=== PATIENT | male | born 1995 | race Caucasian/White ===

== ENCOUNTER 2016-09-30 16:12 | Emergency (ER) | payer BC ==
[2016-09-30 16:38] VITALS: BP 140/63
--- NOTE | 2016-09-30 17:14 | UC ---
General HPI - HPI Summary HPI Summary: The patient comes in today for: 1. Nausea/vomiting, headache, body aches, swollen glands, diaphoresis: Onset: 2 days ago he had sinus congestion. But his symptoms got worse. Palliative/provocative: Hot showers helped. Quality: ache Region: Bitemporal, neck, legs, shoulder. Severity: 4/10 Time: Constant. Associated symptoms: Urination: normal, colorless yesterday. Diarrhea: None. Vomiting: No blood. Rhinitis: "little bit" yellow in the past. Sinus pressure: present of the right maxillary. Others ill in dorm: None. Fever: 102 (7 AM). Missed classes this morning. Patient states that he has a ruptured right Achilles tendon. * - History of Current Complaint Chief Complaint: UCGI Stated Complaint: FEVER,VOMITING Time Seen by Provider: 09/30/16 17:04 Hx Obtained From: Patient - Allergy/Home Medications Allergies/Adverse Reactions: Allergies Allergy/AdvReac Type Severity Reaction Status Date / Time No Known Allergies Allergy Verified 09/30/16 16:30 PMH/Surg Hx/FS Hx/Imm Hx Previously Healthy: Yes Endocrine History Of: Denies: Diabetes, Thyroid Disease, Hyperthyroidism, Hypothyroidism, Dyslipidemia Cardiovascular History Of: Denies: Cardiac Disorders, Hypertension, Pacemaker/ICD, Myocardial Infarction , Congestive Heart Failure, Atrial Fibrillation, Deep Vein Thrombosis, Bleeding Disorders Respiratory History Of: Denies: COPD, Asthma, Bronchitis, Pneumonia, Pulmonary Embolism GI/ History Of: Denies: Gastroesophageal Reflux, Ulcer, Gastrointestinal Bleed, Gall Bladder Disease, Kidney Stones, Diverticulitis, Renal Disease, Urosepsis Neurological History Of: Denies: TIA, CVA, Dementia, Seizures, Migraine Psychological History Of: Denies: Anxiety, Depression, Bipolar Disorder, Schizophrenia, Post Traumatic Stress Disorder Cancer History Of: Denies: Lung Cancer, Colorectal Cancer, Breast Cancer, Prostate Cancer, Cervical Cancer Other History Of: Negative For: HIV, Hepatitis B, Hepatitis C, Anticoagulant Therapy - Surgical History Surgical History: None - Family History Known Family History: Positive: Hypertension Negative: Cardiac Disease - Social History Occupation: Student Lives: With Family Alcohol Use: Weekly Substance Use Type: None Smoking Status (MU): Never Smoked Tobacco - Immunization History Most Recent Influenza Vaccination: NONE Review of Systems Constitutional: Negative Skin: Negative Eyes: Negative ENT: Nasal Discharge Respiratory: Cough Cardiovascular: Negative Gastrointestinal: Negative Genitourinary: Negative All Other Systems Reviewed And Are Negative: Yes Physical Exam Triage Information Reviewed: Yes Appearance: Well-Appearing, No Pain Distress, Well-Nourished, Other: - He has mild diaphoresis. Vital Signs: Initial Vital Signs Temp 98.3 F 09/30/16 16:31 Pulse 65 09/30/16 16:31 Resp 18 09/30/16 16:31 BP 140/63 09/30/16 16:31 Pulse Ox 100 09/30/16 16:31 Vital Signs Reviewed: Yes Eyes: Positive: Conjunctiva Clear. Negative: Discharge ENT: Positive: Hearing grossly normal. Negative: Pharyngeal erythema, Nasal congestion, Nasal drainage, TM bulging, TM dull, TM red, Tonsillar swelling, Tonsillar exudate Dental: Negative: Gross Decay/Caries @, Dental Fracture @ Neck: Positive: Supple, Nontender, No Lymphadenopathy. Negative: Nuchal Rigidity Respiratory: Positive: Chest non-tender, Lungs clear, No respiratory distress, No accessory muscle use. Negative: Crackles, Wheezing Cardiovascular: Positive: RRR, No Murmur Abdomen Description: Positive: Nontender, No Organomegaly, Soft. Negative: Distended, Guarding Musculoskeletal: Positive: Strength Intact, ROM Intact, No Edema, Other: - Right ankle: He has a normal Quigley test and there is no depression along the Achilles tendon with slight dorsiflexion. There is tenderness present. Neurological: Positive: Alert, Muscle Tone Normal Psychological: Positive: Age Appropriate Behavior, Consolable Skin: Negative: rashes, breakdown Course/Dx - Differential Dx - Multi-Symptom Provider Diagnoses: Viral syndrome. Right Achilles tendonitis. Headache secondary to the above. Gastroenteritis Discharge - Discharge Plan Condition: Stable Disposition: HOME Patient Education Materials: Viral Syndrome (ED), General Headache (ED), Gastroenteritis (ED) Forms: *School Release Referrals: Non Staff,Doctor [Primary Care Provider] -
== END 2016-09-30 17:40 | disposition home or self-care (01) ==
LOC: UCCORT 16:12
DX: B34.9 Viral infection, unspecified (principal); M76.61 Achilles tendinitis, right leg; R51 Headache; K52.9 Noninfective gastroenteritis and colitis, unspecified
CPT/HCPCS: 99212; G0463

== ENCOUNTER 2017-03-26 13:19 | Emergency (ER) | payer BC ==
[2017-03-26 13:32] VITALS: BP 127/66
--- NOTE | 2017-03-26 14:10 | UC ---
Throat Pain/Nasal Abundio HPI - HPI Summary HPI Summary: 21 year old male with sore throat. DAY 3 OF SORE THROAT, MEJIA, COUGH, PT TOOK 2 DOSES OF LEFT OVER AMOXICILLIN 03/24/17. Has had tonsillitis in the past and it feels very similar to that but no fever or white exudate. [ End ] - History of Current Complaint Chief Complaint: UCGeneralIllness Stated Complaint: SORE THROAT,COUGH Time Seen by Provider: 03/26/17 14:00 Hx Obtained From: Patient Onset/Duration: Sudden Onset - Allergies/Home Medications Allergies/Adverse Reactions: Allergies Allergy/AdvReac Type Severity Reaction Status Date / Time No Known Allergies Allergy Verified 03/26/17 13:32 PMH/Surg Hx/FS Hx/Imm Hx Previously Healthy: Yes Other History Of: Negative For: HIV, Hepatitis B, Hepatitis C, Anticoagulant Therapy - Surgical History Surgical History: Yes Surgery Procedure, Year, and Place: WISDOM TEETH EXTRACTIONS - Family History Known Family History: Positive: None, Hypertension Negative: Cardiac Disease - Social History Occupation: Student Lives: Dormitory/Roommates Alcohol Use: Weekly Substance Use Type: None Smoking Status (MU): Never Smoked Tobacco - Immunization History Most Recent Influenza Vaccination: NONE Review of Systems ENT: Sore Throat Is Patient Immunocompromised?: No All Other Systems Reviewed And Are Negative: Yes Physical Exam Triage Information Reviewed: Yes Appearance: Well-Appearing, No Pain Distress, Well-Nourished Vital Signs: Initial Vital Signs Temp 97.5 F 03/26/17 13:25 Pulse 56 03/26/17 13:25 Resp 20 03/26/17 13:25 BP 127/66 03/26/17 13:25 Pulse Ox 100 03/26/17 13:25 Vital Signs Reviewed: Yes Eye Exam: Normal ENT Exam: Normal ENT: Positive: Pharyngeal erythema, Nasal congestion, TM red - left ear, Tonsillar swelling. Negative: Tonsillar exudate Dental Exam: Normal Neck exam: Normal Neck: Positive: 1 Respiratory Exam: Normal Cardiovascular Exam: Normal Musculoskeletal Exam: Normal Neurological Exam: Normal Psychological Exam: Normal Skin Exam: Normal Throat Pain/Nasal Course/Dx - Course Course Of Treatment: Concern for false neg strep due to taking augmentin a few doses in the past couple days with history of tonsillitis do not want to miss a false negative nd set up pt for RHD . start probiotics. f/u with PCP if possible - Differential Dx/Diagnosis Differential Diagnosis/HQI/PQRI: Tonsillitis Provider Diagnoses: Tonsillitis Discharge - Discharge Plan Condition: Good Disposition: HOME Prescriptions: Amoxicillin PO (*) [Amoxicillin 500 MG CAP*] 500 mg PO Q12H #20 cap Patient Education Materials: Tonsillitis (ED) Referrals: Non Staff,Doctor [Primary Care Provider] - If Needed Additional Instructions: Change toothbrush and gargle with salt water
== END 2017-03-26 14:20 | disposition home or self-care (01) ==
LOC: UCCORT 13:19
DX: J03.90 Acute tonsillitis, unspecified (principal)
CPT/HCPCS: 87651; 99212; G0463

== ENCOUNTER 2018-03-24 16:49 | Emergency (ER) | payer BC ==
[2018-03-24 18:05] VITALS: BP 126/56
--- NOTE | 2018-03-24 18:41 | ED ---
Abdominal Pain/Male - HPI Summary HPI Summary: 22 yr old male with no abdominal pain at this time; and no painful ulcers or lesions in the mouth or genitals. He presents here with over a month of constipation and at times diarrhea. No pain at this time. No fever, chills, loss of appetite. No black stool. complaint 2 the patient complains of being exposed to herpes type one virus from his girlfriend, but he has no ulcers or symptoms oral or genital. He does have oral sex from girlfriend. He says his girlfriend told him she got it from sharing a fork with someone. The patient has no fever, chills, ulcers at this time. No testicular pain. no penile drainage. - History of Current Complaint Chief Complaint: UCGeneralIllness Stated Complaint: PERSONAL Time Seen by Provider: 03/24/18 18:06 Pain Intensity: 0 - Allergies/Home Medications Allergies/Adverse Reactions: Allergies Allergy/AdvReac Type Severity Reaction Status Date / Time No Known Allergies Allergy Verified 03/24/18 17:59 Home Medications: Home Medications NK [No Home Medications Reported] 03/24/18 [History Confirmed 03/24/18] PMH/Surg Hx/FS Hx/Imm Hx Endocrine/Hematology History: Denies: Hx Anticoagulant Therapy, Hx Diabetes, Hx Thyroid Disease Cardiovascular History: Denies: Hx Congestive Heart Failure, Hx Deep Vein Thrombosis, Hx Hypertension , Hx Myocardial Infarction, Hx Pacemaker/ICD Respiratory History: Denies: Hx Asthma, Hx Chronic Obstructive Pulmonary Disease (COPD), Hx Lung Cancer, Hx Pneumonia, Hx Pulmonary Embolism GI History: Denies: Hx Gall Bladder Disease, Hx Gastrointestinal Bleed, Hx Ulcer, Hx Urosepsis History: Denies: Hx Kidney Stones, Hx Renal Disease Neurological History: Denies: Hx Dementia, Hx Migraine, Hx Seizures, Hx Transient Ischemic Attacks (TIA) Psychiatric History: Denies: Hx Anxiety, Hx Depression, Hx Schizophrenia, Hx Bipolar Disorder - Surgical History Surgery Procedure, Year, and Place: WISDOM TEETH EXTRACTIONS Infectious Disease History: No Infectious Disease History: Denies: Traveled Outside the [place] in Last 30 Days - Family History Known Family History: Positive: None, Hypertension Negative: Cardiac Disease - Social History Alcohol Use: Weekly Substance Use Type: Reports: Marijuana Substance Use Comment - Amount & Last Used: socially Smoking Status (MU): Never Smoked Tobacco Review of Systems Constitutional: Negative Positive: Diarrhea. Negative: Abdominal Pain Negative: Rash, Bruising All Other Systems Reviewed And Are Negative: Yes Physical Exam Triage Information Reviewed: Yes Vital Signs On Initial Exam: Initial Vitals Temp Pulse Resp BP Pulse Ox 98.4 F 51 13 126/56 100 03/24/18 18:00 10 18:00 03/24/18 18:00 03/24/18 18:00 03/24/18 18:00 Vital Signs Reviewed: Yes Appearance: Positive: Well-Appearing, No Pain Distress Skin: Positive: Warm, Skin Color Reflects Adequate Perfusion Head/Face: Positive: Normal Head/Face Inspection Eyes: Positive: EOMI ENT: Positive: Normal ENT inspection, TMs normal Neck: Positive: Nontender Respiratory/Lung Sounds: Positive: Clear to Auscultation, Breath Sounds Present Cardiovascular: Positive: RRR. Negative: Murmur Abdomen Description: Positive: Nontender. Negative: Distended Male Genital Exam: Positive: Normal Genitalia. Negative: No Hernia, Epididymal Tenderness, Erythema, Hernia Mass, Inguinal Tenderness, Lesions, Scrotum Tenderness (R), Testicular Tenderness (R), Testicular Tenderness (L), Urethral Discharge Musculoskeletal: Positive: Strength/ROM Intact Neurological: Positive: Sensory/Motor Intact, Alert, Oriented to Person Place, Time, CN Intact II-III, Normal Gait, Speech Normal Psychiatric: Positive: Normal - Schlater Coma Scale Best Eye Response: 4 - Spontaneous Best Motor Response: 6 - Obeys Commands Best Verbal Response: 5 - Oriented Coma Scale Total: 15 Diagnostics - Vital Signs Vital Signs Temp Pulse Resp BP Pulse Ox 03/24/18 18:00 98.4 F 51 13 126/56 100 - Laboratory Lab Statement: Any lab studies that have been ordered have been reviewed, and results considered in the medical decision making process. Abdominal Pain Fem Course/Dx - Course Course Of Treatment: 22 yr old male with negative findings of clinical herpes outbreak. No abdominal pain now and benign exam at this point. I have referred him to Dr Lemus for any further questions and concerns, and also to GI for any further concerns. He should go to the ER for any return of abdominal pain. - Diagnoses Provider Diagnoses: Abdominal pain, Herpes exposure Discharge - Sign-Out/Discharge Documenting (check all that apply): Patient Departure All imaging exams completed and their final reports reviewed: No Studies - Discharge Plan Condition: Good Disposition: HOME Patient Education Materials: Constipation (DC), Genital Herpes Simplex (ED), Oral Herpes Simplex Virus Infections (ED), Acute Diarrhea (ED) Referrals: No Primary Care Phys,NOPCP [Primary Care Provider] - Mariah PEREZ,Felton Johnson [Medical Doctor] - 1 Day Tez Rose MD [Medical Doctor] - 1 Day - Billing Disposition and Condition Condition: GOOD Disposition: Home
== END 2018-03-24 18:48 | disposition home or self-care (01) ==
LOC: UCCORT 16:49
DX: R10.9 Unspecified abdominal pain (principal); F12.90 Cannabis use, unspecified, uncomplicated; Z20.828 Contact with and (suspected) exposure to other viral communicable diseases
CPT/HCPCS: 99211; G0463

== ENCOUNTER 2018-07-17 12:32 | Emergency (ER) | payer BC ==
[2018-07-17 14:16] VITALS: BP 137/62
--- NOTE | 2018-07-17 14:46 | UC ---
Complaint Male HPI - HPI Summary HPI Summary: C/O tingling in the penis around the urethra, feels like it's inside. Worse with sitting, pinching feeling. Not with urination. No rash noted. - History of Current Complaint Chief Complaint: UCGU Stated Complaint: PERSONAL Time Seen by Provider: 07/17/18 14:31 Hx Obtained From: Patient Onset/Duration: Gradual Onset, Lasting Weeks - 2, Still Present Timing: Intermittent, Lasting Seconds - 2 Severity Initially: Mild Severity Currently: Mild Pain Intensity: 0 Location: Penis - around the urethral meatus Character: Sharp - pinching more than burning. Aggravating Factor(s): Other - sitting Alleviating Factor(s): Other - standing. Associated Signs And Symptoms: Negative: Hematuria, Dysuria, Penile Swelling, Penile Discharge - Allergies/Home Medications Allergies/Adverse Reactions: Allergies Allergy/AdvReac Type Severity Reaction Status Date / Time No Known Allergies Allergy Verified 07/17/18 14:05 Home Medications: Home Medications Ibuprofen TAB* [Advil TAB*] 400 mg PO Q6H PRN 07/17/18 [History Confirmed ] PMH/Surg Hx/FS Hx/Imm Hx Previously Healthy: Yes Other History Of: Negative For: HIV, Hepatitis B, Hepatitis C, Anticoagulant Therapy - Surgical History Surgical History: Yes Surgery Procedure, Year, and Place: WISDOM TEETH EXTRACTIONS--2017 - Family History Known Family History: Positive: None, Hypertension Negative: Cardiac Disease, Diabetes - Social History Occupation: Student Lives: Dormitory/Roommates Alcohol Use: Weekly Substance Use Type: Marijuana Substance Use Comment - Amount & Last Used: socially Smoking Status (MU): Never Smoked Tobacco - Immunization History Most Recent Influenza Vaccination: NONE Review of Systems All Other Systems Reviewed And Are Negative: Yes Genitourinary: Positive: Vaginal/Penile Pain Is Patient Immunocompromised?: No Physical Exam Triage Information Reviewed: Yes Appearance: Well-Appearing, No Pain Distress, Well-Nourished Vital Signs: Initial Vital Signs Temp 97.8 F 07/17/18 14:06 Pulse 69 07/17/18 14:06 Resp 18 07/17/18 14:06 BP 137/62 07/17/18 14:06 Pulse Ox 100 07/17/18 14:06 Vital Signs Reviewed: Yes Eyes: Positive: Conjunctiva Clear Neck exam: Normal Respiratory Exam: Normal Cardiovascular Exam: Normal Male Genital Exam: Positive: Normal Genitalia. Negative: Epididymal Tenderness , Lesions, Urethral Discharge Musculoskeletal Exam: Normal Neurological Exam: Normal Psychological Exam: Normal Skin Exam: Normal Complaint Male Course/Dx - Differential Dx/Diagnosis Differential Diagnosis/HQI/PQRI: Epididymitis, Pyelonephritis, Testicular Torsion, Urinary Tract Infection Provider Diagnosis: Pain in penis Discharge - Sign-Out/Discharge Documenting (check all that apply): Patient Departure All imaging exams completed and their final reports reviewed: No Studies - Discharge Plan Condition: Stable Disposition: HOME Patient Education Materials: Roxanne (ED) Referrals: No Primary Care Phys,NOPCP [Primary Care Provider] - Additional Instructions: It is not obviously herpes or chlamydia. We will hold off on treatment until the results come back. - Billing Disposition and Condition Condition: STABLE Disposition: Home
[2018-07-19 12:47] LABS: Neisseria gonorrhoeae (GC) RNA Negative (Negative)
[2018-07-19 13:45] LABS: Herpes Simplex Virus I IgG AB Negative (Negative); Herpes Simplex Virus II IgG AB Negative (Negative)
[2018-07-19 23:53] LABS: Herpes Simplex IgM IFA Negative (Negative)
== END 2018-07-17 15:26 | disposition home or self-care (01) ==
LOC: UCCORT 12:32
DX: N48.89 Other specified disorders of penis (principal)
CPT/HCPCS: 86694; 86695; 86696; 87491; 87591; 99211; G0463

== ENCOUNTER 2018-09-25 09:49 | Emergency (ER) | payer BC ==
--- NOTE | 2018-09-25 10:02 | UC ---
General HPI - HPI Summary HPI Summary: yesterday, swollen glands in neck. now c/o sore throat, MEJIA and bodyaches with fever. tx 800mg advil 2 hours PROP SAWYER. "it feels like the flu". - History of Current Complaint Stated Complaint: BODYACHES,FEVER,CHILLS,THROAT Hx Obtained From: Patient Timing: Constant Associated Signs & Symptoms: Negative: Chest Pain, Diarrhea, SOB, Vomiting - Allergy/Home Medications Allergies/Adverse Reactions: Allergies Allergy/AdvReac Type Severity Reaction Status Date / Time No Known Allergies Allergy Verified 09/25/18 10:03 PMH/Surg Hx/FS Hx/Imm Hx Previously Healthy: Yes Other History Of: Negative For: HIV, Hepatitis B, Hepatitis C, Anticoagulant Therapy - Surgical History Surgical History: Yes Surgery Procedure, Year, and Place: WISDOM TEETH EXTRACTIONS--2018 - Family History Known Family History: Positive: None, Hypertension Negative: Cardiac Disease, Diabetes - Social History Alcohol Use: Weekly Substance Use Type: Marijuana Substance Use Comment - Amount & Last Used: socially Smoking Status (MU): Never Smoked Tobacco - Immunization History Most Recent Influenza Vaccination: NONE Review of Systems All Other Systems Reviewed And Are Negative: Yes Constitutional: Positive: Fever, Fatigue ENT: Positive: Sore Throat Musculoskeletal: Positive: Myalgia Neurological: Positive: Headache Physical Exam Triage Information Reviewed: Yes Appearance: Ill-Appearing - but non toxic. Vital Signs Reviewed: Yes Eyes: Positive: Conjunctiva Clear ENT: Positive: Pharyngeal erythema, TMs normal, Uvula midline. Negative: Nasal congestion, Nasal drainage, Trismus, Muffled voice, Hoarse voice Neck: Positive: Supple, Tenderness @ - peritonsilar nodes that are enlarged Respiratory: Positive: Lungs clear, Normal breath sounds, No respiratory distress Cardiovascular: Positive: RRR, No Murmur Abdomen Description: Positive: Nontender, No Organomegaly, Soft Bowel Sounds: Positive: Present Musculoskeletal: Positive: ROM Intact Neurological: Positive: Alert Psychological: Positive: Age Appropriate Behavior Skin Exam: Other - Warm and moist Course/Dx - Course Course Of Treatment: DIAGNOSTIC=RAPID STREP IS NEGATIVE. RAPID FLU IS NEGATIVE. - Differential Dx - Multi-Symptom Differential Diagnoses: Other - rapid strep is negative and s/s's c/w local influenza. influenza test is not 100%. - Diagnoses Provider Diagnosis: Influenza-like illness Discharge - Sign-Out/Discharge Documenting (check all that apply): Patient Departure All imaging exams completed and their final reports reviewed: No Studies - Discharge Plan Condition: Stable Disposition: HOME Patient Education Materials: Influenza (ED) Forms: *School Release Referrals: MITCHELL GOMEZ [, APPLICATION, OTHER] - Additional Instructions: FOLLOW UP WITH [facility] IF NOT BETTER IN 3-5 DAYS OR SOONER IF WORSE. - Billing Disposition and Condition Condition: STABLE Disposition: Home - Attestation Statements Provider Attestation: I was available for consult. This patient was seen by the RO. The patient was not presented to , seen by or examined by tx -Joana Silva MD
[2018-09-25 10:04] VITALS: BP 127/86
[2018-09-25 10:20] LABS: Influenza A Molecular NEGATIVE (Negative); Influenza B Molecular NEGATIVE (Negative)
== END 2018-09-25 10:44 | disposition home or self-care (01) ==
LOC: UCCORT 09:49
DX: J11.1 Influenza due to unidentified influenza virus with other respiratory manifestations (principal); R51 Headache; R50.9 Fever, unspecified; F12.10 Cannabis abuse, uncomplicated; M79.10 Myalgia, unspecified site
CPT/HCPCS: 87651; 99211; G0463